=== PATIENT | male | born 1995 | race African-American/Black ===

== ENCOUNTER 2018-08-17 13:11 | Emergency (ER) | payer SELFPAY ==
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
[2018-08-17] MEDS ORDERED: LIDOCAINE 2% MPF 5 ML VIAL ONE (14:59)
[2018-08-17] MEDS ORDERED: TETANUS & DIPHTHERIA TOX,ADULT 0.5 ML VIAL ONE (15:00)
--- NOTE | 2018-08-17 16:48 | RAD REPORT ---
EXAM DESCRIPTION: Ribs Right - 08/17/2018 4:27 pm CLINICAL HISTORY: Right rib pain FINDINGS: No fracture is seen
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
[2018-08-17] MEDS ORDERED: IBUPROFEN 400 MG TAB ONE (17:18)
[2018-08-17] MEDS ORDERED: HYDROCODONE/APAP 5/325 MG TAB ONE (17:18)
== END 2018-08-17 17:26 | disposition home or self-care (01) ==
LOC: ER 13:11
PROC: 0JQH0ZZ Repair Left Lower Arm Subcutaneous Tissue and Fascia, Open Approach (ICD-10-PCS; principal; 2018-08-17)
PROC: 0JQD0ZZ Repair Right Upper Arm Subcutaneous Tissue and Fascia, Open Approach (ICD-10-PCS; 2018-08-17)
PROC: 0CQ1XZZ Repair Lower Lip, External Approach (ICD-10-PCS; 2018-08-17)
DX: S01.511A Laceration without foreign body of lip, initial encounter (principal); S41.011A Laceration without foreign body of right shoulder, initial encounter; S51.812A Laceration without foreign body of left forearm, initial encounter; X99.1XXA Assault by knife, initial encounter; Y93.9 Activity, unspecified; Y92.9 Unspecified place or not applicable; Z23 Encounter for immunization; Z04.71 Encounter for examination and observation following alleged adult physical abuse
CPT/HCPCS: 71045; 90714; 99284

== ENCOUNTER 2018-09-01 15:55 | Emergency (ER) | payer SELFPAY ==
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
--- NOTE | 2018-09-01 16:19 | ER ---
Nurse's Notes [facility] Name: Kvng Membreno Age: 22 yrs Sex: Male : 1995 Arrival Date: 09/01/2018 Time: 15:57 Bed 12 Private MD: Diagnosis: Encounter for removal of sutures Presentation: 09/01 15:58 Presenting complaint: Patient states: i have stitches placed 12 days ago on my L arm, R hj shoulder area that needs to be removed per MD advise; on triage wound looks dry and intact, no signs of infection;. Transition of care: patient was not received from another setting of care. Onset of symptoms was September 01, 2018. Risk Assessment: Do you want to hurt yourself or someone else? Patient reports no desire to harm self or others. Initial Sepsis Screen: Does the patient meet any 2 criteria? No. Patient's initial sepsis screen is negative. Does the patient have a suspected source of infection? No. Patient's initial sepsis screen is negative. Care prior to arrival: None. 15:58 Method Of Arrival: Ambulatory 15:58 Acuity: LIANNE 4 hj Triage Assessment: 16:11 General: Appears in no apparent distress. uncomfortable, Behavior is calm, cooperative, hj appropriate for age. Pain: Denies pain. Historical: - Allergies: 16:01 No Known Allergies; hj - Home Meds: 16:01 None [Active]; hj - PMHx: 16:01 None; hj - PSHx: 16:01 left knee; hj - Immunization history:: Adult Immunizations up to date. - Social history:: Smoking status: Patient/guardian denies using tobacco, Patient/guardian denies using alcohol. - Ebola Screening: : Patient negative for fever greater than or equal to 101.5 degrees Fahrenheit, and additional compatible Ebola Virus Disease symptoms Patient denies exposure to infectious person Patient denies travel to an Ebola-affected area in the 21 days before illness onset. Screenin:11 Abuse screen: Denies threats or abuse. Denies injuries from another. Nutritional hj screening: No deficits noted. Tuberculosis screening: No symptoms or risk factors identified. Fall Risk None identified. Vital Signs: 16:01 BP 141 / 93; Pulse 91; Resp 18; Temp 98.6(TE); Pulse Ox 98% on R/A; Weight 72.57 kg; hj Height 5 ft. 9 in. (175.26 cm); Pain 0/10; 16:01 Body Mass Index 23.63 (72.57 kg, 175.26 cm) ED Course: 15:57 Patient arrived in ED. rg4 16:01 Triage completed. hj 16:02 Arm band placed on right wrist. hj 16:03 Chelsey Piper FNP-C is [facility]. kb 16:03 Royal Thompson MD is Attending Physician. kb 16:10 James Montes, RN is Primary Nurse. hj 16:11 Patient has correct armband on for positive identification. Bed in low position. Call hj light in reach. Side rails up X 1. Adult w/ patient. 16:11 No provider procedures requiring assistance completed. Patient did not have IV access hj during this emergency room visit. intact, bleeding controlled, No redness/swelling at site. Pressure dressing applied. Administered Medications: No medications were administered Outcome: 16:11 Discharged to home ambulatory. hj 16:11 Condition: stable 16:11 Discharge instructions given to patient, Instructed on discharge instructions, follow up and referral plans. Demonstrated understanding of instructions, follow-up care. 16:18 Discharge ordered by MD. kb 16:26 Patient left the ED. iw Signatures: Chelsey Piper FNP-C FNP-Lamar Hare, RN RN James Montes, RN RN Sherly Paniagua rg4 Corrections: (The following items were deleted from the chart) 16:03 16:01 Pulse 91bpm; Resp 18bpm; Pulse Ox 98% RA; Temp 98.6F Temporal; 72.57 kg; Height 5 hj ft. 9 in.; BMI: 23.6; Pain 0/10; hj
== END 2018-09-01 16:26 | disposition home or self-care (01) ==
LOC: ER 15:55
DX: Z48.02 Encounter for removal of sutures (principal)
CPT/HCPCS: 99281